=== PATIENT | female | born 1940 | race Caucasian/White ===

== ENCOUNTER → 2016-08-23 | Outpatient (CLI) | payer MEDICARE, BC ==
[2015-01-19 11:30] VITALS: BP 137/72
[~2016-08-23] MED LIST: ASPI81TA2 PO; ATOR20TA58 PO; ERGO500012 PO; HYDR50TA6 PO; LISI40TA PO; METF10002 PO; METO25TA2 PO
--- NOTE | 2016-08-23 09:51 | RAD ---
DATE: 08/23/2016 EXAM: DIGITAL DIAGNOSTIC RT HISTORY: Microcalcifications COMPARISON: 08/15/2016, 11/26/2014 This study was interpreted with the benefit of Computerized Aided Detection (CAD). FINDINGS: Spot compression magnification views were obtained of the area of microcalcification noted centrally in the right breast on the screening study. These confirm the presence of a grouping of numerous pleomorphic microcalcifications. There is centered just lateral to the midline of the right breast centrally. No associated nodular discrete mass is seen. The appearance raises the possibility of DCIS. There are a couple of other scattered nonspecific microcalcifications in other portions of the right breast. IMPRESSION: Cluster of suspicious microcalcifications in the center of the right breast as described above. Stereotactic biopsy is suggested for further evaluation. BI-RADS CATEGORY: 4 SUSPICIOUS ABNORMALITY- BIOPSY SHOULD BE CONSIDERED RECOMMENDED FOLLOW-UP: BIO BIOPSY RECOMMENDED Note: The patient was notified of the recommendation for biopsy at the time of the procedure. PQRS compliance statement: Patient information was entered into a reminder system with a target due date for the next mammogram. Mammography is a sensitive method for finding small breast cancers, but it does not detect them all and is not a substitute for careful clinical examination. A negative mammogram does not negate a clinically suspicious finding and should not result in delay in biopsying a clinically suspicious abnormality. "Our facility is accredited by the [employer] Mammography [employer]."
== END | disposition home or self-care (01) ==
LOC: KCIC MAMMO 08:41
PROVIDERS: ATTEND Family Medicine
DX: R92.8 Other abnormal and inconclusive findings on diagnostic imaging of breast (principal)
CPT/HCPCS: G0206; 77065

== ENCOUNTER → 2016-09-07 | Outpatient (CLI) | payer MEDICARE, BC ==
[~2016-09-07] VITALS: Ht 165.1 cm; Wt 111.1 kg
[~2016-09-07] MED LIST changes: +ALLO300T PO; +LIDOCAINE 1% / SOD BICARB 8.4% 20 ML VIAL. IJ ONE; +LIDOCAINE 2%/EPI 1:100,000 20 ML VIAL. IJ ONE
[2016-09-07 10:13] VITALS: BP 181/78
--- NOTE | 2016-09-07 11:17 | RAD ---
Indication suspect calcifications right breast. The patient was sent for stereotactic biopsy of suspect calcifications in the right breast. Note is made of recent imaging 08/15/2016 and 08/23/2016 for which biopsy had been recommended. Image guided biopsy was discussed with the patient. The risks of infection and bleeding were outlined. The patient understood the risks associated with the procedure and wished proceed. The patient was placed prone on the biopsy table. CC approach was selected. The suspect calcifications were identified and targeted. The skin was prepped and draped in the routine fashion. Local anesthesia was accomplished with 1% lidocaine. The biopsy probe was introduced. Additional anesthesia was obtained with lidocaine/ epinephrine. Core samples were obtained. Specimen radiograph was obtained. Help Desk Consultant calcifications are seen within the specimen. Following the biopsy a clip was placed. Post biopsy CC and MLO images were obtained. Biopsy clip is noted. On the MLO view the clip is noted to be approximately 12 mm short of the biopsy cavity. The patient tolerated the procedure unremarkably. At the completion of the procedure the biopsy site was dressed in the routine fashion and the patient discharged with appropriate instructions. IMPRESSION: Successful sampling of suspect calcifications right breast using stereotactic mammotome biopsy
--- NOTE | 2016-09-08 14:19 | PATHOLOGY ---
PATHOLOGY REPORT * * * * * * * * FINAL DIAGNOSIS: Breast tissue, right breast stereotactic biopsy: - Ancient fibroadenoma, with associated calcifications. - Stromal fibrosis and focal mild duct ectasia. COMMENT: Sections of the right breast stereotactic biopsy reveal an ancient fibroadenoma with associated calcifications. The fibroadenoma measures up to 0.6 cm in greatest dimension on the glass slide. The remaining breast tissue shows stromal fibrosis and focal mild duct ectasia. There is no evidence of malignancy. (JPM:; d/t: 09/08/16) REPORT ELECTRONICALLY SIGNED BY: Nasir Pardo M.D. DATE/TIME: 09/08/2016 14:18 * * * * * * * * GROSS PATHOLOGY: Received in formalin labeled "Isis Jeronimo and right breast microcalcs," are multiple needle cores of yellow-epps fibrofatty tissue measuring 4.0 x 2.5 x 0.7 cm in aggregate dimensions. Also received is a plastic cassette containing multiple cores of yellow-epps fibrofatty tissue measuring 2.8 x 2.2 x 0.5 cm in aggregate dimensions. The tissue in the cassette is transferred to cassettes A1-A3, and the remaining tissue is submitted in its entirety in cassettes A4-A6. The cold ischemic time is 7 minutes. The total formalin fixation time is 11 hours and 10 minutes. (TTL; 09/07/2016) INITIAL CPT CODE(S): A; 83429 Professional services performed [place] [facility] [place] [address] Technical services performed by [facility] at [address] [place] [address], [place] [address] [address]. SPECIMEN(S) RECEIVED: A.Right breast calcifications CLINICAL HISTORY: Right breast microcalcifications PATIENT: ISIS JERONIMO /AGE: 802/16/1940 (Age: 76) PATIENT #: [id number] ALT CASE #: SPECIMEN COLLECTION DATE: 09/07/2016 SPECIMEN RECEIVED DATE: 09/07/2016 [facility] - [address] [place] [address] - PHONE: [phone] * * * END OF REPORT * * *
== END | disposition home or self-care (01) ==
LOC: MAMMO 09:40
PROVIDERS: ATTEND Surgery
DX: R92.0 Mammographic microcalcification found on diagnostic imaging of breast (principal)
CPT/HCPCS: 19085; 77022; C1713; G0206; J3490; 77065

== ENCOUNTER → 2016-10-27 | Outpatient (CLI) | payer MEDICARE, BC ==
[2016-09-07 10:13] VITALS: BP 181/78
[~2016-10-27] MED LIST changes: -LIDOCAINE 1% / SOD BICARB 8.4% 20 ML VIAL. IJ ONE; -LIDOCAINE 2%/EPI 1:100,000 20 ML VIAL. IJ ONE
--- NOTE | 2016-10-27 12:15 | KCIC ---
PROCEDURE Abdomen ultrasound HISTORY Chronic back pain. Pain for over 2 years. COMPARISON None FINDINGS Pancreas unremarkable Aorta is obscured proximally, no evidence of mid to distal aortic aneurysm. IVC is patent. Liver is not enlarged. However there is a coarse echogenicity suggesting fatty infiltration. There are some echogenic shadowing foci within the gallbladder compatible with gallstones. Borderline thickening of the gallbladder wall 3-4 millimeters. Common bile duct is dilated at 9 millimeters. Right kidney measures 10.8 cm longitudinal. The year renal pelvis is prominent but no definite caliectasis. Left kidney measures 10.5 cm longitudinal without hydronephrosis. Spleen is not enlarged. IMPRESSION 1. Findings compatible with cholelithiasis. Borderline gallbladder wall thickening suggesting cholecystitis. 2. Common bile duct is mildly dilated at 9 millimeters. 3. Hepatic steatosis. 4. Prominent right renal pelvis could be due to anatomic extrarenal pelvis, but mild hydronephrosis is possible, although note there is no evidence of caliectasis. Electronically signed by: Subhash Gaines MD (Oct 27, 2016 12:13:52)
== END | disposition home or self-care (01) ==
LOC: KCIC US 07:45
PROVIDERS: ATTEND Family Medicine
DX: K76.0 Fatty (change of) liver, not elsewhere classified (principal)
CPT/HCPCS: 76700

== ENCOUNTER → 2018-12-24 | Outpatient (CLI) | payer MEDICARE, BC ==
[2016-09-07 10:13] VITALS: BP 181/78
[~2018-12-24] MED LIST changes: +ASPI-630 PO; -ASPI81TA2 PO; -ERGO500012 PO; +ERGO500027 PO; +LISI-130 PO; -LISI40TA PO; -METF10002 PO; +METF10007 PO
--- NOTE | 2018-12-24 16:51 | KCIC ---
Bilateral digital screening mammograms with 3-D tomosynthesis: Reason for examination: Routine screening. Comparison is made to previous studies dated 08/15/2016 and 12/04/2014. Bilateral mammograms in CC and oblique projections were obtained with 2-D imaging and 3-D tomosynthesis imaging on a Siemens Inspiration unit and reviewed on the workstation. Interpretation was made with the benefit of CAD. The skin and nipples show no abnormalities. No abnormal axillary lymph nodes are seen. The breast parenchyma is predominantly fatty. (Breast density: Category A.) There is a small nodule at the 2:00 B position of the left breast measuring 7.5 mm in greatest dimension and 6 cm from the nipple. Further evaluation with ultrasound is recommended. There are no other dominant masses, suspicious calcifications or architectural distortion. Benign calcifications are present. Impression: 7.5 mm nodule at the 2:00 B position 6 cm from the nipple of the left breast. Recommend further evaluation with ultrasound. "Our facility is accredited by the [employer] Mammography [employer]." This patient's information has been entered into a reminder system for the patient to be notified with the results of her examination and a target date for the next mammogram. Electronically signed by: Laverne Viera MD (12/24/2018 4:48 PM) [id number]
== END | disposition home or self-care (01) ==
LOC: KCIC MAMMO 12:05
PROVIDERS: ATTEND Family Medicine
DX: Z12.31 Encounter for screening mammogram for malignant neoplasm of breast (principal); N64.89 Other specified disorders of breast; N63.21 Unspecified lump in the left breast, upper outer quadrant
CPT/HCPCS: 77063; 77067

== ENCOUNTER → 2019-01-03 | Outpatient (CLI) | payer MEDICARE, BC ==
[2016-09-07 10:13] VITALS: BP 181/78
--- NOTE | 2019-01-03 14:20 | KCIC ---
Left breast ultrasound: Reason for examination: Nodular density on screening mammogram. Comparison is made to mammographic examination dated 12/24/2018. Ultrasound examination was performed with attention to the lateral breast and axilla. There is no discrete cystic or solid nodule or architectural distortion. No abnormal appearing lymph nodes are seen in the axilla. IMPRESSION: No suspicious abnormality seen sonographically in the left breast. Recommend reevaluation in 6 months with left breast mammogram and ultrasound. BI-RADS Category 3: Probably Benign. "Our facility is accredited by the [employer] Mammography Program." This patient's information has been entered into a reminder system for the patient to be notified with the results of her examination and a target date for the next mammogram. Electronically signed by: Laverne Viera MD (01/03/2019 2:17 PM) [facility]
== END | disposition home or self-care (01) ==
LOC: KCIC US 12:40
PROVIDERS: ATTEND Family Medicine
DX: R92.8 Other abnormal and inconclusive findings on diagnostic imaging of breast (principal)
CPT/HCPCS: 76641

== ENCOUNTER → 2021-06-30 | Outpatient (CLI) | payer MEDICARE, BC ==
[2016-09-07 10:13] VITALS: BP 181/78
[~2021-06-30] MED LIST changes: -HYDR50TA6 PO; +HYDR50TA9 PO
--- NOTE | 2021-06-30 16:22 | RAD ---
EXAM: Renal sonogram. HISTORY: Chronic renal disease. TECHNIQUE: Sonographic imaging the kidneys and bladder was performed. COMPARISON: None. FINDINGS: The kidneys are normal in size. No solid or cystic renal lesion is seen. The bladder is unr emarkable. There is no hydronephrosis. IMPRESSION: Unremarkable renal sonogram. Electronically signed by: Kelli Marquez MD (06/30/2021 4:19 PM) [id number]
== END ==
LOC: US 15:45
PROVIDERS: ATTEND Internal Medicine Nephrology
DX: N18.32 Chronic kidney disease, stage 3b (principal)
CPT/HCPCS: 76770